=== PATIENT | female | born 1970 | race Hispanic/Latino ===

== ENCOUNTER 2018-05-05 15:01 | Emergency (ER) | payer OTHER ==
[2018-05-05 15:10] VITALS: BP 120/78; PULSE 77; RESP 16; TEMP 97.8; O2SAT 98
[2018-05-05 17:00] LABS: BASO # 0.1 K/uL (0.0-0.2); BASO % 1.1 % (0.0-2.0); EOS # 0.2 K/uL (0.0-0.7); EOS % 2.3 % (0.0-4.0); HEMOGLOBIN 14.6 g/dL (12.0-16.0); LYMPH # 2.5 K/uL (1.0-4.3); LYMPH % 37.6 % (20.0-40.0); MEAN CELL VOLUME 95.1 fl (81.0-99.0); MEAN CORPUSCULAR HEMOGLOBIN 32.5 pg (27.0-31.0); MEAN CORPUSCULAR HGB CONC 34.1 g/dL (33.0-37.0); MEAN PLATELET VOLUME 7.5 fl (7.2-11.7); MONO # 0.7 K/uL (0.0-0.8); NEUT # 3.3 K/uL (1.8-7.0); NRBC % 0.1 % (0.0-0.0); RBC 4.5 Mil/uL (3.80-5.20); RED CELL DISTRIBUTION WIDTH 12.8 % (11.5-14.5); WHITE BLOOD COUNT 6.7 K/uL (4.8-10.8)
[2018-05-05 17:46] LABS: ALB/GLOB RATIO 1.1 (1.0-2.1); ALBUMIN 4.3 g/dL (3.5-5.0); ALT/SGPT 36 U/L (9-52); AST/SGOT 44 U/L (14-36); BLOOD UREA NITROGEN 22 mg/dl (7-17); CALCIUM 9.6 mg/dL (8.4-10.2); GFR NON-AFRICAN AMERICAN > 60
--- NOTE | 2018-05-05 18:45 | ED PDOC ---
HPI: General Adult Chief Complaint (Provider): "dizziness, palpitations, anxiety" History Per: Patient History/Exam Limitations: no limitations Onset/Duration Of Symptoms: Mins Have you had recent travel within the past 21 days to any of the following countries: [place], [place], [place] or [place]?: No Additional Complaint(s): 48 yo female with no known medical problems presents for evaluation of lightheadedness and palpiations. Pt begins crying in ER and states she thinks she is having a mental break down. PT states she lost her job and month ago and has been very stressed. Pt states that she has been very upset but does not want to hurt herself. Pt states she had an episode of anxiety, lightheadedness and palpitations. PT states it resolved but she has never experienced anything like this in the past. <Deb Taylor - Last Filed: 05/05/18 20:11> <Amarjit Hairston - Last Filed: 05/05/18 21:44> Time Seen by Provider: 05/05/18 15:33 Chief Complaint (Nursing): Dizziness/Lightheaded Past Medical History Reviewed: Historical Data, Nursing Documentation, Vital Signs Vital Signs: Last Vital Signs Temp 97.8 F 05/05/18 15:06 Pulse 77 05/05/18 15:06 Resp 16 05/05/18 15:06 BP 120/78 05/05/18 15:06 Pulse Ox 98 05/05/18 15:06 - Medical History PMH: No Chronic Diseases - Surgical History Surgical History: No Surg Hx - Family History Family History: States: No Known Family Hx - Living Arrangements Living Arrangements: With Family - Social History Current smoker - smoking cessation education provided: No <Deb Taylor - Last Filed: 05/05/18 20:11> Vital Signs: Last Vital Signs Temp 97.8 F 05/05/18 15:06 Pulse 77 05/05/18 15:06 Resp 16 05/05/18 15:06 BP 120/78 05/05/18 15:06 Pulse Ox 98 05/05/18 20:12 <Amarjit Hairston - Last Filed: 05/05/18 21:44> - Allergies Allergies/Adverse Reactions: Allergies Allergy/AdvReac Type Severity Reaction Status Date / Time aspirin Allergy RASH Verified 05/05/18 15:06 Penicillins Allergy ANAPHYLAXIS Verified 05/05/18 15:06 Review of Systems ROS Statement: Except As Marked, All Systems Reviewed And Found Negative Constitutional: Negative for: Fever, Chills Cardiovascular: Positive for: Palpitations, Light Headedness. Negative for: Chest Pain Respiratory: Negative for: Cough, Shortness of Breath Gastrointestinal: Negative for: Nausea, Vomiting, Abdominal Pain <Deb Taylor - Last Filed: 05/05/18 20:11> Physical Exam - Reviewed Nursing Documentation Reviewed: Yes Vital Signs Reviewed: Yes - Physical Exam Appears: Positive for: Well, Non-toxic, No Acute Distress Head Exam: Positive for: ATRAUMATIC, NORMAL INSPECTION, NORMOCEPHALIC Skin: Positive for: Normal Color, Warm, DRY Eye Exam: Positive for: Normal appearance ENT: Positive for: Normal ENT Inspection Neck: Positive for: Normal, Painless ROM Cardiovascular/Chest: Positive for: Regular Rate, Rhythm Respiratory: Positive for: Normal Breath Sounds. Negative for: Accessory Muscle Use, Respiratory Distress Gastrointestinal/Abdominal: Positive for: Normal Exam, Soft. Negative for: Tenderness Back: Positive for: Normal Inspection Extremity: Positive for: Normal ROM Neurologic/Psych: Positive for: Alert, Oriented <Deb Taylor - Last Filed: 05/05/18 20:11> - Laboratory Results Result Diagrams: 05/05/18 16:25 05/05/18 16:25 - ECG O2 Sat by Pulse Oximetry: 98 Pulse Ox Interpretation: Normal <Deb Taylor - Last Filed: 05/05/18 20:11> - Laboratory Results Result Diagrams: 05/05/18 16:25 05/05/18 16:25 <Amarjit Hairston - Last Filed: 05/05/18 21:44> Medical Decision Making Medical Decision Making: Continued care by Dr. Hairsotn. Crisis evaluation pending. Labs normal. PT reports feeling better on re-evaluation. <Deb Taylor - Last Filed: 05/05/18 20:11> Medical Decision Making: Patient currently pending crisis evaluation. 21:19 Patient seen and evaluated by crisis team and per Dr. Maciel, stable for discharge home. Diagnosis: Anxiety Scribe Attestation: Documented by Oneida Nunez, acting as a scribe for Amarjit Hairston MD. Provider Scribe Attestation: All medical record entries made by the Scribe were at my direction and personally dictated by me. I have reviewed the chart and agree that the record accurately reflects my personal performance of the history, physical exam, medical decision making, and the department course for this patient. I have also personally directed, reviewed, and agree with the discharge instructions and disposition. <Amarjit Hairston - Last Filed: 05/05/18 21:44> Disposition - Patient ED Disposition Is Patient to be Admitted: Transfer of Care - Disposition Disposition: Transfer of Care Disposition Time: 20:00 <Deb Taylor - Last Filed: 05/05/18 20:11> - Patient ED Disposition Is Patient to be Admitted: No Doctor Will See Patient In The: Office Counseled Patient/Family Regarding: Studies Performed, Diagnosis, Need For Followup - Disposition Disposition: Routine/Home Disposition Time: 21:19 <Amarjit Hairston - Last Filed: 05/05/18 21:44> - Clinical Impression Clinical Impression: Anxiety, Palpitations - Disposition Referrals: [facility] [Outside] Condition: GOOD Instructions: Anxiety, Adult (DC), Palpitations (DC)
--- NOTE | 2018-05-06 11:19 | CARD ---
APPROVED REPORT Date of service: 05/05/2018 EKG Measurement Heart [id number] <Conclusion> Normal sinus rhythm Normal ECG
== END 2018-05-05 21:51 | disposition home or self-care (01) ==
LOC: H.ER 15:01
DX: R00.2 Palpitations (principal); F41.9 Anxiety disorder, unspecified; Z88.0 Allergy status to penicillin